=== PATIENT | male | born 1965 | race Caucasian/White ===

== ENCOUNTER 2017-12-04 15:41 | Outpatient (CLI) | payer OTHER | END 2017-12-04 15:42 | disposition home or self-care (01) | LOC: BICMRI 15:41 | PROVIDERS: ATTEND Family Medicine | DX: S83.231A Complex tear of medial meniscus, current injury, right knee, initial encounter (principal) ==

== ENCOUNTER 2017-12-25 16:20 | Outpatient (CLI) | payer OTHER ==
[2017-12-25 17:23] LABS: #Basophils 0.1 thou/uL (0.0-0.2); #Eosinphils 0.3 thou/uL (0.0-0.7); #Lymphocytes 3.4 thou/uL (1.20-3.40); #Monocytes 0.9 thou/uL (0.11-0.59); #Neutrophils 3.9 thou/uL (1.40-6.50); %Basophils 0.9 % (0.0-1.0); %Eosinophils 3.9 % (0.0-10.0); %Lymphocytes 39.2 % (21.0-51.0); %Monocytes 10.3 % (0.0-10.0); %Neutrophils 45.8 % (42.0-75.0); Hemoglobin 15.6 g/dL (14.0-18.0); Mean Corpuscular HGB CONC 34.5 g/dL (32.0-36.0); Mean Corpuscular Hemoglobin 29.8 pg (27.0-31.0); Mean Corpuscular Volume 86.4 fl (80.0-94.0); Platelet Count 296 thou/uL (130-400); RBC Distribution Width 11.7 % (11.5-14.5); Red Blood Cell (RBC) Count 5.23 mill/uL (4.70-6.10); White Blood Cell (WBC) Count 8.6 thou/uL (4.8-10.8)
[2017-12-25 18:00] LABS: Anion Gap 11 mmol/L (10-20); BUN (Urea Nitrogen) 14 mg/dL (8.4-25.7); Calc. Creatinine Clearance 0 mL/min (70-130); Calcium 10.3 mg/dL (7.8-10.44); Carbon Dioxide 24 mmol/L (22-29); Chloride 107 mmol/L (98-107); Estimated GFR-MDRD 83; Glucose 103 mg/dL (70-105); Potassium 4.3 mmol/L (3.5-5.1); Sodium 138 mmol/L (136-145)
== END 2017-12-25 16:21 | disposition home or self-care (01) ==
LOC: LABBT 16:20
PROVIDERS: ATTEND Orthopaedic Surgery
DX: Z01.818 Encounter for other preprocedural examination (principal); S83.241A Other tear of medial meniscus, current injury, right knee, initial encounter
CPT/HCPCS: 80048; 85025; 93005; 93010

== ENCOUNTER 2017-12-27 07:33 | Day surgery (SDC) | payer OTHER ==
[2017-12-25 16:46] VITALS: BMI 32.8
[2017-12-27] MEDS ORDERED: Vancomycin HCl 1.5 GM in Sodium Chloride 0.9% 250 ML 300 ML IVPB SCH (08:15)
[2017-12-27] MEDS ORDERED: PROPOFOL 20 ML ONE (08:30)
[2017-12-27] MEDS ORDERED: Bupivacaine HCl 0.5%/Epinephrine 1:200,000/PF 30 ml Vial ONE (09:04)
[2017-12-27] MEDS ORDERED: Lidocaine 2% w/Epinephrine 1:200K 20 ML VIAL ONE (09:04)
[2017-12-27] MEDS ORDERED: Fentanyl 100 MCG/2 ML VIAL ONE (10:02)
[2017-12-27] MEDS ORDERED: Lidocaine 1% PF 5 ML VIAL ONE (14:45)
[2017-12-27] MEDS ORDERED: Ketorolac Tromethamine 30 MG/ML VIAL ONE (14:45)
[2017-12-27] MEDS ORDERED: PROPOFOL 200 MG/20 ML VIAL ONE (14:45)
--- NOTE | 2017-12-27 19:21 | OP ---
DATE OF PROCEDURE: 12/27/2017 PREOPERATIVE DIAGNOSIS: Right knee medial meniscus tear. POSTOPERATIVE DIAGNOSIS: Right knee medial meniscus tear. PROCEDURE PERFORMED: Right knee arthroscopy with partial medial meniscectomy. SURGEON: Sarkis Vásquez M.D. [employer] SPECIALIST: None. BLOOD LOSS: Minimal. COMPLICATIONS: None. ANESTHETIC: The patient did have general anesthetic, also had a local knee block. CONDITION: He went to the recovery room in stable condition. INDICATIONS: This is a 52-year-old male who comes in complaining of pain, catching, and swelling in the knee and nonresponsive to nonoperative treatment. DESCRIPTION OF PROCEDURE: After all appropriate consent forms were explained and signed, he was take n to the operating room and at this time was given general anesthetic. Once anesthesia was appropria te, the tourniquet was placed on the right thigh and leg was then placed in arthroscopic leg walker. It was then prepped and draped in the standard surgical fashion. The limb was then exsanguinated an d the tourniquet was taken up to 300 mmHg. An inferolateral portal was then established and the scop e was placed into the knee joint. A needle localization technique was then used to make a medial wor mikki portal. Diagnostic arthroscopy commenced in the notch. The ACL and PCL probed and found to be intact. The medial compartment was evaluated. There was a degenerative complex tear of the posterio r horn and body of the medial meniscus and a partial meniscectomy was performed with meniscal biter a nd shaver back to a stable base. The lateral compartment showed the meniscus to be intact, popliteal is intact. The femur and tibia were also in good condition. As we looked the remaining lateral fem oral condyle, there was a ridge with a small crack in the cartilage. No unstable cartilage was noted . Gutters were swept through and no loose bodies noted. Patellofemoral joint did show some grade II changes with some unstable cartilage flaps on the inferior pole of patella. This was gently debride d. The central trochlea also had some areas with some unstable cartilage and also was noted in this region that there were some areas that were maybe the patient had some gout or pseudogout because the re were some crystals embedded in the cartilage in this region. At this time, scope was removed, kne e was drained, and the portals were closed with simple nylon stitch. Bulky sterile dressing was appl ied and tourniquet let down. Toes pinked up nicely. The patient was awakened and he was taken to e recovery room in stable condition. All counts were correct at the end of the case and he did recei ve preoperative IV antibiotics.
== END 2017-12-27 13:55 | disposition home or self-care (01) ==
LOC: SDC 07:33
PROVIDERS: ATTEND Orthopaedic Surgery
PROC: 0SBC4ZZ Excision of Right Knee Joint, Percutaneous Endoscopic Approach (ICD-10-PCS; principal; 2017-12-27)
DX: M23.321 Other meniscus derangements, posterior horn of medial meniscus, right knee (principal); Z88.0 Allergy status to penicillin
CPT/HCPCS: G8978-GP-CI; G8979-GP-CI; G8980-GP-CI; J0670; J1885; J2001; J2704; J3010; J3370; J7050

== ENCOUNTER 2020-02-03 10:18 | Outpatient (CLI) | payer OTHER ==
--- NOTE | 2020-02-03 12:06 | RAD ---
LEFT ANKLE 2 VIEWS: HISTORY: Left ankle pain. FINDINGS/IMPRESSION: No fracture, dislocation, or bone destruction is seen. A plantar calcaneal spur is present. POS: [facility]
== END 2020-02-03 10:19 | disposition home or self-care (01) ==
LOC: SCSRAD 10:18
PROVIDERS: ATTEND Family Medicine
DX: M25.572 Pain in left ankle and joints of left foot (principal); M77.32 Calcaneal spur, left foot